=== PATIENT | female | born 1995 | race Two or more races ===

== ENCOUNTER 2016-11-25 15:08 | Emergency (ER) | payer SELFPAY ==
[2016-11-25 16:00] LABS: URINE BILIRUBIN NEGATIVE (NEG); URINE BLOOD LARGE (NEG); URINE GLUCOSE (UA) NEGATIVE (NEG); URINE KETONE SMALL (NEG); URINE LEUKOCYTE ESTERASE POSITIVE (NEG); URINE NITRITE NEGATIVE (NEG); URINE PROTEIN SMALL (NEG); URINE SPECIFIC GRAVITY 1.025 (1.003-1.030)
[2016-11-25 16:05] LABS: URINE APPEARANCE HAZY; URINE COLOR YELLOW
[2016-11-25 16:13] LABS: URINE BACTERIA 1+; URINE MUCUS 3+
[2016-11-25] MEDS ORDERED: MACROBID 100 M100 M1 PO (16:34)
[2016-11-25] MEDS ORDERED: FLAGYL500 M1 PO (16:34)
== END 2016-11-25 16:57 ==
LOC: EDMED 15:08
PROVIDERS: Physician Assistant
DX: N39.0 Urinary tract infection, site not specified (principal); N76.0 Acute vaginitis; F17.210 Nicotine dependence, cigarettes, uncomplicated